=== PATIENT | male | born 1980 | race Caucasian/White ===

== ENCOUNTER 2018-10-14 15:45 | Emergency (ER) | payer OTHER ==
[2018-10-14 16:00] VITALS: BP 150/78
--- NOTE | 2018-10-14 16:20 | ED Physician Documentation ---
History of Present Illness - Stated complaint Stated Complaint: RT EYE INJ - Chief complaint Chief Complaint: Heent - History obtained from History obtained from: Patient - History of Present Illness Timing: Prior to arrival - Additonal information Additional information: Patient is a previously healthy 37-year-old male who wears glasses only presenting with pain and conjunctival injection to the lateral corner of his right eye after accidentally being hit in the eye by a branch while doing yard work. Patient was wearing protective glasses at the time. Patient denies any change in his vision, eyelid involvement, foreign body sensation, drainage from eye, or other injuries. There are no particular improving or worsening symptoms noted. Review of Systems Eyes: denies: Loss of vision, Decreased vision, Discharge PD PAST MEDICAL HISTORY - Past Medical History Past Medical History: No - Past Surgical History Past Surgical History: No - Present Medications Home Medications: Ambulatory Orders Medication Instructions Recorded Confirmed Ofloxacin 0.3% Ophth Drops 2 drops OPTH Q6H 5 Days #1 btl 10/14/18 [Ocuflox 0.3% Ophth Drops] - Allergies Allergies/Adverse Reactions: Allergies Allergy/AdvReac Type Severity Reaction Status Date / Time Sulfa (Sulfonamide Allergy Unknown unknown Verified 12/31/12 12:25 Antibiotics) - Social History Does the pt smoke?: No Smoking Status: Never smoker Does the pt drink ETOH?: Yes Does the pt have substance abuse?: No - Immunizations Immunizations are current?: Yes PD ED PE NORMAL - General General: Alert and oriented X 3, No acute distress, Well developed/nourished - HEENT HEENT: Atraumatic, PERRL (Gross visual acuity intact. No nystagmus. Left eye unremarkable. Right eye has mild conjunctival injection at the lateral/corner aspect of the eye. Eversion of eyelids reveals no foreign body on the right. Fluorescein exam is positive for small amount of uptake on the right eye on the lower lateral quadrant.), EOMI, Moist mucous membranes, Other (OU:20/15, OS:20/15, OD:20/20) - Respiratory Respiratory: No respiratory distress - Derm Derm: Normal color, Warm and dry, No rash - Extremities Extremities: No deformity - Neuro Neuro: Alert and oriented X 3, No motor deficit, No sensory deficit - Psych Psych: Normal mood, Normal affect Results - Vitals Vitals: Vital Signs - 24 hr 10/14/18 15:55 Temperature 37.1 C Heart Rate 104 H Respiratory 18 Rate Blood Pressure 150/78 H O2 Saturation 96 Oxygen O2 Source Room air PD MEDICAL DECISION MAKING - ED course Complexity details: considered differential, d/w patient ED course: Most concerning for a corneal abrasion given traumatic inciting incident. No evidence of other globe injury. No evidence of eyelid involvement, facial bone involvement, or other acute pathology. Do not feel that he is likely experiencing uveitis, iritis, glaucoma, conjunctivitis or other illness as this was a traumatic onset. Do not find infectious symptoms present. Patient's pain addressed with proparacaine. Fluoroscein exam positive for corneal abrasion. Discussed use of ophthalmic drops, return precautions, and appropriate follow- up. Patient voiced understanding and is comfortable with discharge plan. Departure - Departure Disposition: 01 Home, Self Care Clinical Impression: Corneal abrasion Qualifiers: Encounter type: initial encounter Laterality: right Qualified Code(s): S05.01XA - Injury of conjunctiva and corneal abrasion without foreign body, right eye, initial encounter Condition: Good Instructions: ED Eye Injury Corneal Abrasion Follow-Up: your,doctor [Other] - Within 3 Days Prescriptions: Ofloxacin 0.3% Ophth Drops [Ocuflox 0.3% Ophth Drops] 2 drops OPTH Q6H 5 Days #1 btl Comments: Please use eyedrops as prescribed to address corneal abrasion. Please use glasses only. Please follow-up with primary care physician or teaching dietitian in next 2-3 days. Return to ED immediately if experience worsening symptoms or other concerns.
== END 2018-10-14 16:36 | disposition home or self-care (01) ==
LOC: ED 15:45
DX: S05.01XA Injury of conjunctiva and corneal abrasion without foreign body, right eye, initial encounter (principal); W22.8XXA Striking against or struck by other objects, initial encounter; Y93.H9 Activity, other involving exterior property and land maintenance, building and construction; Y92.096 Garden or yard of other non-institutional residence as the place of occurrence of the external cause
CPT/HCPCS: 99283